=== PATIENT | male | born 1980 | race African-American/Black ===

== ENCOUNTER 2020-09-29 11:25 | Emergency (ER) | payer BC, OTHER ==
[~2020-09-29] VITALS: Ht 188 cm; Wt 123.8 kg
== END 2020-09-29 12:28 | disposition home or self-care (01) ==
LOC: ER 11:51
DX: L05.91 Pilonidal cyst without abscess (principal); I10 Essential (primary) hypertension; E11.9 Type 2 diabetes mellitus without complications
CPT/HCPCS: 99282